=== PATIENT | male | born 1955 | race Caucasian/White ===

== ENCOUNTER 2017-12-26 07:04 | Observation (INO) | payer OTHER ==
[~2017-12-26] VITALS: Ht 188 cm; Wt 90.7 kg
[~2017-12-26 07:04] MED LIST: ASC500 PO; CALC600T59 PO; MULT1CAP41 PO
[2017-12-26] MEDS ORDERED: IBUP100T51 PO (07:16)
--- NOTE | 2017-12-26 07:38 | ER Report ---
History and Physical Time Seen By MD: 07:38 Hx. of Stated Complaint: BILAT ABDOMINAL PAIN AND DISTENTION THAT STARTED TWO WEEKS AGO THAT SIGNIFICANTLY WORSENED LAST NIGHT. NO N/V/D. HPI/ROS 63-year-old male presents to the emergency department with worsening bilateral lower quadrant abdominal pain. Also with nausea without vomiting. He had a normal bowel movement today, and is passing gas. No fever or chills. No chest pain or shortness of breath. No recent trauma. No hematemesis or hematochezia. Otherwise no complaints. Remainder of the 14 system rev: Yes Allergies: Coded Allergies: codeine (Verified Allergy, Mild, ITCHING/NAUSEA, 12/06/08) latex (Verified Allergy, Unknown, 12/26/17) Home Meds Active Scripts Nicotine (NICOTROL) 10 Mg/Inh Ctr, 10 MG INH PRN PRN for smoking, #30 INH Prov:ROSY VALLECILLO [facility] 12/27/17 Hydrocodone Bit/Acetaminophen (HYDROCODON-ACETAMINOPHEN 5-325) 1 Each Tablet, 1 EACH PO Q4H PRN for PAIN, #42 TAB Prov:ROSY VALLECILLO [facility] 12/27/17 Reported Medications Ascorbic Acid (VITAMIN C) 500 Mg Tablet, 500 MG PO QDAY, TAB 12/26/17 Cholecalciferol (Vitamin D3) (VITAMIN D3) 1,000 Unit Tablet, 1000 UNIT PO QDAY, TAB 12/26/17 Multivit With Calcium,Iron,Min (ESSENTIAL DAILY) 1 Each Tablet, 1 EACH PO QDAY 12/26/17 Ibuprofen (ADVIL) 100 Mg Tablet, 3 TAB PO BID Please decrease intake of ibuprofen. Can cause GI bleeding and kidney issues. 12/26/17 Reviewed Nurses Notes: Yes Old Medical Records Reviewed: Yes Constitutional Physical Exam General Appearance: The patient is alert, has no immediate need for airway protection and no current signs of toxicity. Eyes: Pupils equal and round no injection. Respiratory: Chest is non tender, lungs are clear to auscultation. Cardiac: regular rate and rhythm Gastrointestinal: Abdomen is soft with diffuse, non-focal TTP Musculoskeletal: Neck: Neck is supple and non tender. Extremities have full range of motion and are non tender. Skin: No rashes or lesions. DIFFERENTIAL DIAGNOSIS: After history and physical exam differential diagnosis was considered for abdominal pain including but not limited to appendicitis, cholecystitis, gastritis and urinary tract infection. Medical Decision Making Data Points Laboratory Hematology Test 12/26/17 07:30 12/26/17 12:08 D-Dimer Quantitative (PE/DVT) 0.44 ug/ml (0-0.50) Hemoglobin A1c 7.1 % (4.6-6.0) Troponin I < 0.012 ng/ml Lipase 86 U/L (23-300) Lactate 0.8 mmol/L (0.7-2.1) Chemistry Test 12/26/17 07:30 12/26/17 12:08 D-Dimer Quantitative (PE/DVT) 0.44 ug/ml (0-0.50) Hemoglobin A1c 7.1 % (4.6-6.0) Troponin I < 0.012 ng/ml Lipase 86 U/L (23-300) Lactate 0.8 mmol/L (0.7-2.1) Coagulation Test 12/26/17 07:30 D-Dimer Quantitative (PE/DVT) 0.44 ug/ml ED Course/Re-evaluation ED Course Patient otherwise stable, but CT scan concerning for an early bowel obstruction. He is having normal bowel movements and passing gas, so I think this can be treated conservatively with IV hydration, bowel rest, and gentle advancement of diet. I spoke with the surgeon vice president industrial relations who agrees that this is not an acute yuen rgical problem. He will be admitted to the hospitalist service for conservative management of a possible early small bowel obstruction versus ileus. Decision to Disposition Date: Dec 26, 2017 Decision to Disposition Time: 15:00 Depart Departure Latest Vital Signs Impression: Primary Impression: Partial small bowel obstruction Additional Impression: LACY (acute kidney injury) Condition: Improved Disposition: Admitted from ER New Scripts Nicotine (NICOTROL) 10 Mg/Inh Ctr 10 MG INH PRN PRN for smoking, #30 INH Prov: ROSY VALLECILLO [employer] 12/27/17 Hydrocodone Bit/Acetaminophen (HYDROCODON-ACETAMINOPHEN 5-325) 1 Each Tablet 1 EACH PO Q4H PRN for PAIN, #42 TAB Prov: ROSY VALLECILLO [employer] 12/27/17 Problem Qualifiers DAI NICHOLAS MD Dec 26, 2017 07:38
[2017-12-26] MEDS ORDERED: NS(*) 0.9% 1000 ML BAG 1,000 ML IV ONE (07:45)
[2017-12-26 07:56] LABS: PLATELET COUNT, AUTOMATED 131 K/uL (150-450)
[2017-12-26] MEDS ORDERED: MORPHINE 4 MG/ML SDV IVP ONE ×3 (08:10→12:05)
--- NOTE | 2017-12-26 08:19 | EKG ---
FACILITY: [facility] PATIENT NAME: LAURA KEMP : [id number] MR: [id number] V: [id number] EXAM DATE: ORDERING PHYSICIAN: DAI NICHOLAS TECHNOLOGIST: MARIELLE Sheets Reason : GI PAIN Blood Pressure : / mmHG Vent. Rate : 070 BPM Atrial Rate : 070 BPM P-R Int : 134 ms QRS Dur : 098 ms QT Int : 404 ms P-R-T Axes : 099 061 056 degrees QTc Int : 436 ms Sinus rhythm with premature atrial complex Nonspecific ST findings diffusely Artifact in several leads - repeat if needed No previous ECGs available Confirmed by URBAN VALENTIN ([id number]) on 12/26/2017 10:16:06 AM Referred By: YU Confirmed By:URBAN VALENTIN
--- NOTE | 2017-12-26 08:39 | RADIOLOGY IMAGING REPORT ---
FACILITY: [facility] - [place] PATIENT NAME: Brenton Wang : 1955 MR: [id number] V: [id number] EXAM DATE: ORDERING PHYSICIAN: DAI NICHOLAS TECHNOLOGIST: Location: [facility] [place] Patient: Brenton Wang : 1955 Visit/Account:[id number] Date of Sevice: 12/26/2017 CHEST SINGLE AP Additional pertinent History: Left lower chest pain COMPARISON STUDIES: none FINDINGS: Support lines and catheters: None Lungs and Pleura: Lung smiley well expanded with no infiltrates or consolidations. No parenchymal ma ss lesions are seen. There are no effusions Heart and vasculature: Negative. Yennifer and Mediastinum: Negative. Bones and Chest wall: Negative. Upper Abdomen: Negative. IMPRESSION: 1. Negative chest Report Dictated By: Hai Bear MD at 12/26/2017 8:34 AM Report E-Signed By: Hai Bear MD at 12/26/2017 8:35 AM WSN:[id number]
[2017-12-26] MEDS ORDERED: IOPAMIDOL 76% 100 ML INFUS BTL 100 ML ONE (09:15)
--- NOTE | 2017-12-26 10:35 | RADIOLOGY IMAGING REPORT ---
FACILITY: [facility] - [place] PATIENT NAME: Brenton Wang : 1955 MR: [id number] V: [id number] EXAM DATE: ORDERING PHYSICIAN: DAI NICHOLAS TECHNOLOGIST: Location: [facility] [place] Patient: Brenton Wang : 1955 Visit/Account:[id number] Date of Sevice: 12/26/2017 ABDOMEN/PELVIS WITH CONTRAST HISTORY: severe atraumatic LUQ pain TECHNIQUE: Following administration of IV contrast contiguous axial images acquired through the abdom en/pelvis. Coronal and sagittal reformatting also performed. Dose Lowering Technique One of the following dose optimization techniques was utilized in the performance of this exam: Autom ated exposure control; adjustment of the mA and/or kV according to the patient's size; or use of an i terative reconstruction technique. Specific details can be referenced in the facility's radiology C T exam operational policy. CONTRAST: 75 mL Isovue-370 COMPARISON: None. FINDINGS: Visualized lung bases: There Is coarse linear stranding in the right lung base and pleural-based calc ifications along the diaphragmatic surface on the right. Also noted are reticular nodular changes in the posterior aspect right lower lobe Hepatobiliary: Cholelithiasis although no evidence of bony ductal dilatation. There is a severe nod ular configuration to the liver with hypertrophy of the caudate and left lobes very suspicious for ci rrhosis. Spleen: Borderline enlarged at 13.9 cm in length Adrenals: Negative. Pancreas: Negative. Kidneys ureters or bladder: Nonobstructing renal calculi are seen in both renal collecting systems. There is is a marked lobular contour to both kidneys . Subcentimeter hypodensities in the kidneys a re too small to characterize although may represent cysts Genitalia: Prostate gland appears heterogeneous and contains coarse calcifications.. There are calc ifications of the vas deferens bilaterally GI: There Is diverticulosis of the left-sided colon no CT evidence of acute diverticulitis. There is moderate gaseous distention of several jejunal loops in the left upper quadrant abdomen. Th ere Is a transitional point left mid abdomen best seen on coronal image #34. This could represent a partial small bowel obstruction possibly a localized ileus. There is mild thickening of the lower esophagus Vessels/spaces/nodes: There are mild vascular calcifications present there are portosystemic collate rals in the upper and mid abdomen There are multiple retroperitoneal lymph nodes, many appear small. A policy services representative aortocaval lymph node measures 1.1 x 1.4 cm Bones/soft tissues: There is an umbilical hernia containing fat. There are mild spondylotic changes of the visualized lower thoracic spine and extensive spondylotic changes of the scoliotic lumbar spi ne Additional findings: None pertinent. IMPRESSION: There is coarse linear stranding in the right lung base and pleural-based calcifications along the di aphragmatic cysts on the right which may represent chronic pleural parenchymal scarring although clin ical correlation needed. Also noted are reticular nodular changes in the posterior aspect right lowe r lobe consistent with chronic changes although less likely an acute infiltrate not excluded Cholelithiasis although no evidence for ductal dilatation There is a severe nodular configuration to the liver with hypertrophy of the caudate and left lobes h ighly suspicious for cirrhosis. Also noted are numerous portosystemic collaterals consistent with po rtal hypertension. Borderline splenomegaly Nonobstructing renal calculi bilaterally with a lobular contour to both kidneys. Calcified vas deferens bilaterally Diverticulosis left-sided colon although no CT evidence of acute diverticulitis There is moderate gaseous distention of several jejunal loops in left upper quadrant of abdomen. The re is a transitional point in the left mid abdomen as described above which could represent a partial small bowel obstruction or ossibly a localized ileus. Mild thickening the lower esophagus. Multiple retroperitoneal lymph nodes many of which appear small. A policy services representative aortocaval node me asures 1.1 x 1.4 cmReport Dictated By: Fauzia Butler MD at 12/26/2017 10:11 AM Report E-Signed By: Fauzia Butler MD at 12/26/2017 10:30 AM WSN:[email or web address]
[2017-12-26 13:20] VITALS: BP 158/87
[2017-12-26] MEDS ORDERED: MORPHINE 2 MG/ML SYR IVP ONE (13:30)
[2017-12-26] MEDS ORDERED: ASCO-182 PO (13:32)
[2017-12-26] MEDS ORDERED: MULT-1077 PO (13:32)
[2017-12-26] MEDS ORDERED: CHOL10005 PO (13:32)
[2017-12-26] MEDS ORDERED: ACETAMINOPHEN 325 MG TAB PO PRN (14:25)
[2017-12-26] MEDS ORDERED: MORPHINE 4 MG/ML SDV IVP PRN (14:25)
[2017-12-26] MEDS ORDERED: INSULIN HUM LISPRO 100 UN/ML 3 ML VIAL SUBQ PRN (14:25)
[2017-12-26] MEDS ORDERED: NICOTINE INH SYSTEM 10 MG/INH INH PRN (14:45)
--- NOTE | 2017-12-26 14:55 | History & Physical ---
History of Present Illness Chief Complaint abdominal pain History of Present Illness He is a 62 year old male that presented to the emergency department with complaints of bilateral abdominal pain. He reports he has had abdominal distention for two weeks, but the pain significantly worsened last night. He denies fever, CP, SOB, N/V/D or constipation. He did have CT done in the emergency department which suggests a partial small bowel obstruction. He was recommended for admission. History Problems: (1) History of ankle fracture Status: Resolved Home Meds Reported Medications Ascorbic Acid (VITAMIN C) 500 Mg Tablet, 500 MG PO QDAY, TAB 12/26/17 Cholecalciferol (Vitamin D3) (VITAMIN D3) 1,000 Unit Tablet, 1000 UNIT PO QDAY, TAB 12/26/17 Multivit With Calcium,Iron,Min (ESSENTIAL DAILY) 1 Each Tablet, 1 EACH PO QDAY 12/26/17 Ibuprofen (ADVIL) 100 Mg Tablet, 4 TAB PO TID' 12/26/17 Discontinued Reported Medications Multivitamins W-Minerals (Multivitamin) 1 Cap Capsule, 1 CAP PO DAILY, 0 Refills 12/06/08 Calcium Carbonate (Caltrate 600) 600 Mg Tablet, 600 MG PO DAILY, 0 Refills 12/06/08 Ascorbic Acid (Vitamin C) 500 Mg Tab, 500 MG PO QDAY, 0 Refills 12/06/08 Allergies: Coded Allergies: codeine (Verified Allergy, Mild, ITCHING/NAUSEA, 12/06/08) latex (Verified Allergy, Unknown, 12/26/17) Hx Smoking: Yes (12 cig a day) Smoking Status: Current: Every Day Smoker Caffeine Intake: Coffee Caffeine/Cups Per Day: 4 Hx Alcohol Use: No When Quit Alcohol?: 12 yr ago Hx Substance Use Disorder: No Review of Systems All Systems Reviewed/Normal: Yes, Except as Noted Gastrointestinal: Abdominal Pain Exam Vital Signs Vital Signs Date Time Temp Pulse Resp B/P (MAP) Pulse Ox O2 Delivery O2 Flow Rate FiO2 12/26/17 13:20 97.8 61 16 158/87 (110) 96 Room Air General Appearance: Alert, Awake, No Acute Distress, Afebrile Neuro: No Gross deficits Cardiovascular: Regular Rate and Rhythm Respiratory: No Respiratory Distress, Clear to Auscultation GI: Other (abdominal pain to left upper quadrant upon palpation) Extremities: No Edema Psych: Alert & Oriented X3, Appropriate Mood & Affect Medical Decision Making Data Points Result Diagram: 12/26/17 0730 12/26/17 0730 EKG / Imaging EKG Interpretation SR with PAC's Monitor Interpretation: NSR with PACs Imaging PATIENT NAME: Brenton Wang : 1955 MR: [id number] V: [id number] EXAM DATE: [id number] ORDERING PHYSICIAN: DAI NICHOLAS TECHNOLOGIST: Location: [facility] [place] Patient: Brenton Wang : 1955 Visit/Account:[id number] Date of Sevice: 12/26/2017 ABDOMEN/PELVIS WITH CONTRAST HISTORY: severe atraumatic LUQ pain TECHNIQUE: Following administration of IV contrast contiguous axial images acquired through the abdomen/pelvis. Coronal and sagittal reformatting also performed. Dose Lowering Technique One of the following dose optimization techniques was utilized in the performance of this exam: Automated exposure control; adjustment of the mA and/ or kV according to the patient's size; or use of an iterative reconstruction technique. Specific details can be referenced in the facility's radiology CT exam operational policy. CONTRAST: 75 mL Isovue-370 COMPARISON: None. FINDINGS: Visualized lung bases: There Is coarse linear stranding in the right lung base and pleural-based calcifications along the diaphragmatic surface on the right. Also noted are reticular nodular changes in the posterior aspect right lower lobe Hepatobiliary: Cholelithiasis although no evidence of bony ductal dilatation. There is a severe nodular configuration to the liver with hypertrophy of the caudate and left lobes very suspicious for cirrhosis. Spleen: Borderline enlarged at 13.9 cm in length Adrenals: Negative. Pancreas: Negative. Kidneys ureters or bladder: Nonobstructing renal calculi are seen in both renal collecting systems. There is is a marked lobular contour to both kidneys . Subcentimeter hypodensities in the kidneys are too small to characterize although may represent cysts Genitalia: Prostate gland appears heterogeneous and contains coarse calcifications.. There are calcifications of the vas deferens bilaterally GI: There Is diverticulosis of the left-sided colon no CT evidence of acute diverticulitis. There is moderate gaseous distention of several jejunal loops in the left upper quadrant abdomen. There Is a transitional point left mid abdomen best seen on coronal image #34. This could represent a partial small bowel obstruction possibly a localized ileus. There is mild thickening of the lower esophagus Vessels/spaces/nodes: There are mild vascular calcifications present there are portosystemic collaterals in the upper and mid abdomen There are multiple retroperitoneal lymph nodes, many appear small. A airport representative aortocaval lymph node measures 1.1 x 1.4 cm Bones/soft tissues: There is an umbilical hernia containing fat. There are mild spondylotic changes of the visualized lower thoracic spine and extensive spondylotic changes of the scoliotic lumbar spine Additional findings: None pertinent. IMPRESSION: There is coarse linear stranding in the right lung base and pleural-based calcifications along the diaphragmatic cysts on the right which may represent chronic pleural parenchymal scarring although clinical correlation needed. Also noted are reticular nodular changes in the posterior aspect right lower lobe consistent with chronic changes although less likely an acute infiltrate not excluded Cholelithiasis although no evidence for ductal dilatation There is a severe nodular configuration to the liver with hypertrophy of the caudate and left lobes highly suspicious for cirrhosis. Also noted are numerous portosystemic collaterals consistent with portal hypertension. Borderline splenomegaly Nonobstructing renal calculi bilaterally with a lobular contour to both kidneys. Calcified vas deferens bilaterally Diverticulosis left-sided colon although no CT evidence of acute diverticulitis There is moderate gaseous distention of several jejunal loops in left upper quadrant of abdomen. There is a transitional point in the left mid abdomen as described above which could represent a partial small bowel obstruction or ossibly a localized ileus. Mild thickening the lower esophagus. Multiple retroperitoneal lymph nodes many of which appear small. A airport representative aortocaval node measures 1.1 x 1.4 cmReport Dictated By: Fauzia Butler MD at 12/26/2017 10:11 AM Report E-Signed By: Fauzia Butler MD at 12/26/2017 10:30 AM Assessment and Plan Problems: (1) Partial small bowel obstruction Status: Acute Assessment & Plan: He was admitted with partial small bowel obstruction and abdominal pain. He will receive IV hydration, pain medications. We will do acute abdomen x-ray in the morning. He will be placed on clear liquid diet at this time. (2) Hyperglycemia Status: Acute Assessment & Plan: He was admitted with a glucose of 239. He will be placed on AC/HS glucose monitoring and SSI level 1. We will check an A1C also. (3) Acute kidney injury Status: Acute Assessment & Plan: He was admitted with a creatinine of 1.3. It could be secondary to ibuprofen use. He does report he takes 800mg three times daily. He will receive IV hydration. We will recheck BMP in the morning. Venous Thromboembolism Antithrombotics Is Pt On Any Antithrombotics?: No Exam Sepsis Risk: No Definite Risk ROSY VALLECILLO [facility] Dec 26, 2017 14:54
[2017-12-26] MEDS: NS(*) 0.9% 1000 ML BAG 1,000 ML IV PRN (15:00)
[2017-12-26] MEDS ORDERED: MORPHINE 1 MG/ML 30 ML PCA IV PRN (15:15)
[2017-12-26] MEDS ORDERED: NALOXONE HCL 0.4 MG/ML VIAL IVP PRN (15:15)
[2017-12-26 15:56] VITALS: BP 164/91
[2017-12-26 18:47] VITALS: BP 143/79
[2017-12-26 22:22] VITALS: BP 157/86
[2017-12-27 03:10] VITALS: BP 154/85
[2017-12-27] MEDS: NS(*) 0.9% 1000 ML BAG 1,000 ML IV PRN (04:54)
[2017-12-27 05:48] LABS: PLATELET COUNT, AUTOMATED 113 K/uL (150-450)
--- NOTE | 2017-12-27 07:13 | RADIOLOGY IMAGING REPORT ---
FACILITY: [facility] - [place] PATIENT NAME: Brenton Wang : 1955 MR: [id number] V: [id number] EXAM DATE: ORDERING PHYSICIAN: ROSY VALLECILLO TECHNOLOGIST: Location: [facility] Patient: Brenton Wang : 1955 Visit/Account:[id number] Date of Sevice: 12/27/2017 OBSTRUCTION SERIES: Indication: Partial small bowel obstruction. Technique: Supine and erect views of the abdomen and a frontal view of the chest were obtained. Comparison: None. Findings: The intestinal gas pattern is unremarkable. There is no evidence of obstruction, dilatation , or free air. No suspicious calcifications are identified. There is moderate degenerative disc disea se and osteoarthritis in the lumbar spine. No acute skeletal deformity is identified. The chest film demonstrates minimal linear atelectasis at the right base. The lungs are otherwise jennifer ar. There is no evidence of effusion. The heart and mediastinal contours are within normal limits. IMPRESSION: No evidence of obstruction or free air. Report Dictated By: Casper Salazar MD at 12/27/2017 7:05 AM Report E-Signed By: Casper Salazar MD at 12/27/2017 7:09 AM WSN:[id number]
[2017-12-27] MEDS ORDERED: APAP/HYDROCODONE 325/5 TAB PO PRN (07:50)
[2017-12-27 08:07] VITALS: BP 168/89
[2017-12-27] MEDS ORDERED: LOR5/325 PO (09:20)
[2017-12-27] MEDS ORDERED: NIC10R INH (09:20)
--- NOTE | 2017-12-27 09:28 | Hospitalist Depart ---
Discharge Summary Reason for Hosp/Final Diag: (1) Partial small bowel obstruction Status: Acute Hospital Course & Plan: He was admitted with partial small bowel obstruction and abdominal pain. He received IV hydration and pain medications. His abdomen x -ray shows no acute processes this morning. His diet was advanced. He will be given oral pain medications to go home. He should follow up with PCP and will get referral to follow up with GI doctor as well. (2) Hyperglycemia Status: Acute Hospital Course & Plan: He was admitted with a glucose of 239. He was placed on AC/HS glucose monitoring and SSI level 1. A1C is 7.1. He will establish care for PCP and get further recommendations. (3) Acute kidney injury Status: Acute Hospital Course & Plan: He was admitted with a creatinine of 1.3, and has decreased to 1.1 with hydration. It could be secondary to ibuprofen use. He does report he takes 800mg three times daily. He was encouraged to decrease ibuprofen use. Departure Latest Vital Signs Vital Signs 12/26/17 12/27/17 12/27/17 12/27/17 22:22 08:07 08:09 08:11 Temp 98.6 Pulse 63 Resp 16 B/P (MAP) 168/89 (115) Pulse Ox 96 O2 Delivery Room Air O2 Flow Rate 0.5 Weight (Pounds): 200 Weight (Ounces): 9.0 Result Diagram: 12/27/17 0534 12/27/17 0534 Condition: Improved Discharge: Home, Self Care Discharge Instructions Home Meds Active Scripts Nicotine (NICOTROL) 10 Mg/Inh Ctr, 10 MG INH PRN Y for smoking, #30 INH Prov:ROSY VALLECILLO [employer]CH[employer] 12/27/17 Hydrocodone Bit/Acetaminophen (HYDROCODON-ACETAMINOPHEN 5-325) 1 Each Tablet, 1 EACH PO Q4H Y for PAIN, #42 TAB Prov:ROSY VALLECILLO [employer] 12/27/17 Reported Medications Ascorbic Acid (VITAMIN C) 500 Mg Tablet, 500 MG PO QDAY, TAB 12/26/17 Cholecalciferol (Vitamin D3) (VITAMIN D3) 1,000 Unit Tablet, 1000 UNIT PO QDAY, TAB 12/26/17 Multivit With Calcium,Iron,Min (ESSENTIAL DAILY) 1 Each Tablet, 1 EACH PO QDAY 12/26/17 Ibuprofen (ADVIL) 100 Mg Tablet, 3 TAB PO BID Please decrease intake of ibuprofen. Can cause GI bleeding and kidney issues. 12/26/17 Discontinued Reported Medications Multivitamins W-Minerals (Multivitamin) 1 Cap Capsule, 1 CAP PO DAILY, 0 Refills 12/06/08 Calcium Carbonate (Caltrate 600) 600 Mg Tablet, 600 MG PO DAILY, 0 Refills 12/06/08 Ascorbic Acid (Vitamin C) 500 Mg Tab, 500 MG PO QDAY, 0 Refills 12/06/08 Diet: Diabetic Activity: As Tolerated Special Instructions: Please see primary care provider regarding abdomen. Need referral for GI doctor. Please decrease ibuprofen intake. Your kidney function can be decreased with too much ibuprofen intake. Venous Thromboembolism Antithrombotics Is Pt On Any Antithrombotics?: No ROSY VALLECILLO Dec 27, 2017 09:28
== END 2017-12-27 10:00 | disposition home or self-care (01) ==
LOC: ER 07:07 → MED 12:49 → INTOOBSV 12:49
PROVIDERS: ADMIT Internal Medicine; ATTEND Internal Medicine
DX: K56.600 Partial intestinal obstruction, unspecified as to cause (principal); N17.9 Acute kidney failure, unspecified; R73.9 Hyperglycemia, unspecified
CPT/HCPCS: 36415; 36416; 71045; 74022; 74177; 82948; 83036; 83605; 83690; 84484; 85025; 85379; 93005; 96361; 96374; 96376; 99284; G0378; J2270; J7030; Q9967; 82040; 82247; 82310; 82374; 82435; 82565; 82947; 84075; 84132; 84155; 84295; 84450; 84460; 84520; 96375

== ENCOUNTER 2018-10-13 21:35 | Emergency (ER) | payer OTHER ==
[~2018-10-13 21:35] MED LIST changes: +ASCO-182 PO; +CHOL10005 PO; +IBUP100T51 PO; +LOR5/325 PO; +MULT-1077 PO; +NIC10R INH
--- NOTE | 2018-10-13 21:45 | ER Report ---
History and Physical Time Seen By MD: 21:45 HPI/ROS CHIEF COMPLAINT: Cough, shortness of breath HISTORY OF PRESENT ILLNESS: 63-year-old male smoker one pack per day for 45 years. Patient denies history of COPD, does not use inhalers. Patient notes shortness of breath since yesterday with productive cough of yellowish sputum. He notes increased work of breathing. He notes right-sided sharp pleuritic rib pain with increased with coughing. Patient notes no leg swelling or chest pain. Patient denies cardiac history. Patient denies fever or chills. REVIEW OF SYSTEMS: Respiratory: As above Cardiovascular: As above Gastrointestinal: No vomiting, no abdominal pain. Musculoskeletal: No back pain. Allergies: Coded Allergies: codeine (Verified Allergy, Mild, ITCHING/NAUSEA, 10/13/18) latex (Verified Allergy, Unknown, 10/13/18) Home Meds Active Scripts Prednisone (PREDNISONE) 20 Mg Tablet, 20 MG PO QDAY for reduce lung inflammation, #9 2 by mouth daily for 3 days then 1 by mouth daily for 3 days Prov:ADRIANA BALBUENA DO 10/13/18 Cefuroxime Axetil (CEFUROXIME) 500 Mg Tablet, 500 MG PO BID for infection, #14 TAB Prov:SREEADRIANA [place] DO 10/13/18 Discontinued Reported Medications Ascorbic Acid (VITAMIN C) 500 Mg Tablet, 500 MG PO QDAY, TAB 12/26/17 Cholecalciferol (Vitamin D3) (VITAMIN D3) 1,000 Unit Tablet, 1000 UNIT PO QDAY, TAB 12/26/17 Multivit With Calcium,Iron,Min (ESSENTIAL DAILY) 1 Each Tablet, 1 EACH PO QDAY 12/26/17 Ibuprofen (ADVIL) 100 Mg Tablet, 3 TAB PO BID Please decrease intake of ibuprofen. Can cause GI bleeding and kidney issues. 12/26/17 Discontinued Scripts Nicotine (NICOTROL) 10 Mg/Inh Ctr, 10 MG INH PRN PRN for smoking, #30 INH Prov:ROSY VALLECILLOP 12/27/17 Hydrocodone Bit/Acetaminophen (HYDROCODON-ACETAMINOPHEN 5-325) 1 Each Tablet, 1 EACH PO Q4H PRN for PAIN, #42 TAB Prov:ROSY VALLECILLOP 12/27/17 Reviewed Nurses Notes: Yes Old Medical Records Reviewed: Yes Hx Smoking: Yes (12 cig a day) Smoking Status: Current: Every Day Smoker Hx Substance Use Disorder: No Hx Alcohol Use: No Constitutional Vital Sign - Last 24 Hours 10/13/18 10/13/18 10/13/18 10/13/18 21:39 21:40 21:50 21:54 Temp 98.6 Pulse 74 77 78 Resp 26 19 18 B/P (MAP) 162/93 (116) 162/93 Pulse Ox 97 92 O2 Delivery Room Air 10/13/18 10/13/18 10/13/18 10/13/18 21:54 22:00 22:00 22:05 Pulse 80 86 Resp 20 11 B/P (MAP) 156/94 (114) Pulse Ox 94 95 O2 Delivery Room Air 10/13/18 10/13/18 10/13/18 10/13/18 22:20 22:30 22:50 23:00 Pulse 77 72 Resp 7 31 B/P (MAP) 151/87 (108) 140/80 (100) Pulse Ox 92 90 10/13/18 10/13/18 23:05 23:20 Pulse 79 75 Resp 18 15 Pulse Ox 91 91 Physical Exam General Appearance: The patient is alert, has no immediate need for airway protection and no current signs of toxicity. Vital signs stable, afebrile, mild tachypnea, pulse ox normal HEENT: Pupils equal and round no injection. TMs normal, oropharynx with mild erythema, no exudate Respiratory: Chest is non tender, lungs are clear to auscultation. Faint expiratory wheezing, no Rales Cardiac: regular rate and rhythm, no murmur Gastrointestinal: Abdomen is soft and non tender, no masses, bowel sounds normal. Musculoskeletal: Neck: Neck is supple and non tender. Extremities have full range of motion and are non tender. No edema, no calf tenderness, stasis changes in the left lower extremity Skin: No rashes or lesions. DIFFERENTIAL DIAGNOSIS: After history and physical exam differential diagnosis was considered for shortness of breath including but not limited to pulmonary infectious process, COPD, asthma, pulmonary embolus and congestive heart failure. Medical Decision Making Data Points Result Diagram: 10/13/18215210/13/182152 Laboratory Hematology Test 10/13/18 21:53 Red Blood Count 4.84 M/uL (4.00-5.60) Mean Corpuscular Volume 88.6 fL (80.0-96.0) Mean Corpuscular Hemoglobin 31.0 pg (26.0-33.0) Mean Corpuscular Hemoglobin Concent 35.0 g/dL (32.0-36.0) Red Cell Distribution Width 13.9 % (11.5-14.5) Mean Platelet Volume 7.7 fL (7.2-11.1) Neutrophils (%) (Auto) 58.0 % (39.4-72.5) Lymphocytes (%) (Auto) 30.4 % (17.6-49.6) Monocytes (%) (Auto) 10.1 % (4.1-12.4) Eosinophils (%) (Auto) 0.8 % (0.4-6.7) Basophils (%) (Auto) 0.7 % (0.3-1.4) Nucleated RBC Relative Count (auto) 0.0 /100WBC Neutrophils # (Auto) 2.6 K/uL (2.0-7.4) Lymphocytes # (Auto) 1.4 K/uL (1.3-3.6) Monocytes # (Auto) 0.5 K/uL (0.3-1.0) Eosinophils # (Auto) 0.0 K/uL (0.0-0.5) Basophils # (Auto) 0.0 K/uL (0.0-0.1) Nucleated RBC Absolute Count (auto) 0.00 K/uL D-Dimer Quantitative (PE/DVT) 0.41 ug/ml (0-0.50) Sodium Level 138 mmol/L (137-145) Potassium Level 3.7 mmol/L (3.5-5.0) Chloride Level 104 mmol/L (98-107) Carbon Dioxide Level 26 mmol/L (22-30) Blood Urea Nitrogen 18 mg/dl (9-21) Creatinine 1.40 mg/dl (0.66-1.25) Glomerular Filtration Rate Calc 51.5 Random Glucose 108 mg/dl (75-110) Lactate 0.8 mmol/L (0.7-2.1) Calcium Level 8.9 mg/dl (8.4-10.2) Total Bilirubin 0.6 mg/dl (0.2-1.3) Aspartate Amino Transf (AST/SGOT) 35 U/L (0-35) Alanine Aminotransferase (ALT/SGPT) 32 U/L (0-56) Alkaline Phosphatase 110 U/L (0-126) Troponin I < 0.012 ng/ml B-Type Natriuretic Peptide 55 pg/ml (0-100) Total Protein 6.9 g/dl (6.3-8.2) Albumin 3.6 g/dl (3.5-5.0) Chemistry Test 10/13/18 21:53 White Blood Count 4.5 k/uL (4.5-11.0) Red Blood Count 4.84 M/uL (4.00-5.60) Hemoglobin 15.0 g/dL (14.0-18.0) Hematocrit 42.9 % (42.0-52.0) Mean Corpuscular Volume 88.6 fL (80.0-96.0) Mean Corpuscular Hemoglobin 31.0 pg (26.0-33.0) Mean Corpuscular Hemoglobin Concent 35.0 g/dL (32.0-36.0) Red Cell Distribution Width 13.9 % (11.5-14.5) Platelet Count 99 K/uL (150-450) Mean Platelet Volume 7.7 fL (7.2-11.1) Neutrophils (%) (Auto) 58.0 % (39.4-72.5) Lymphocytes (%) (Auto) 30.4 % (17.6-49.6) Monocytes (%) (Auto) 10.1 % (4.1-12.4) Eosinophils (%) (Auto) 0.8 % (0.4-6.7) Basophils (%) (Auto) 0.7 % (0.3-1.4) Nucleated RBC Relative Count (auto) 0.0 /100WBC Neutrophils # (Auto) 2.6 K/uL (2.0-7.4) Lymphocytes # (Auto) 1.4 K/uL (1.3-3.6) Monocytes # (Auto) 0.5 K/uL (0.3-1.0) Eosinophils # (Auto) 0.0 K/uL (0.0-0.5) Basophils # (Auto) 0.0 K/uL (0.0-0.1) Nucleated RBC Absolute Count (auto) 0.00 K/uL D-Dimer Quantitative (PE/DVT) 0.41 ug/ml (0-0.50) Glomerular Filtration Rate Calc 51.5 Lactate 0.8 mmol/L (0.7-2.1) Calcium Level 8.9 mg/dl (8.4-10.2) Total Bilirubin 0.6 mg/dl (0.2-1.3) Aspartate Amino Transf (AST/SGOT) 35 U/L (0-35) Alanine Aminotransferase (ALT/SGPT) 32 U/L (0-56) Alkaline Phosphatase 110 U/L (0-126) Troponin I < 0.012 ng/ml B-Type Natriuretic Peptide 55 pg/ml (0-100) Total Protein 6.9 g/dl (6.3-8.2) Albumin 3.6 g/dl (3.5-5.0) Coagulation Test 10/13/18 21:53 D-Dimer Quantitative (PE/DVT) 0.41 ug/ml Microbiology Microbiology Date/Time Source Procedure Growth Status 10/13/18 23:22 Blood Peripheral Draw Blood Culture - Preliminary NO GROWTH AFTER 3 DAYS, REINCUBATED Resulted 10/13/18 21:53 Blood Peripheral Draw Blood Culture - Preliminary NO GROWTH AFTER 3 DAYS, REINCUBATED Resulted EKG/Imaging EKG Interpretation 12 lead EK Rhythm: normal sinus rhythm with sinus arrhythmia [place]: normal QRS: normal ST segments: normal, no evidence of ischemia or dysrhythmia, peaked T waves in V2 through V4, comparison to previous EKG dated 12/26/17, no significant change Imaging X-ray: Two-view chest x-ray was obtained. I viewed the images myself on the PACS system. My interpretation of the images is: No infiltrate, no effusion, normal mediastinum. The radiologist interpretation had no clinically significant variation from this interpretation. ED Course/Re-evaluation Clinical Indication for ER IV: Hydration, IV Access ED Course Patient was admitted to an examination room. H&P was done. The differential diagnoses was considered. On clinical examination. Patient with shortness of breath and increased work of breathing. He does have a history of COPD. Patient is productive cough of colored sputum and low-grade fevers for 2 days. His chest x-ray is clear. His diagnostic studies are unremarkable. He is treated with Solu-Medrol IV, DuoNeb's. His EKG and troponin were unremarkable. He is discharged home on Ceftin, prednisone and albuterol inhaler. Patient advised to follow-up with primary care if unimproved in 3-5 days. Decision to Disposition Date: October 13, 2018 Decision to Disposition Time: 23:20 Depart Departure Latest Vital Signs Vital Signs Date Time Temp Pulse Resp B/P (MAP) Pulse Ox O2 Delivery O2 Flow Rate FiO2 10/13/18 23:20 75 15 91 10/13/18 23:00 140/80 (100) 10/13/18 21:54 Room Air 10/13/18 21:40 98.6 Impression: Primary Impression: COPD exacerbation Additional Impressions: Acute bronchitis Thrombocytopenia Condition: Improved Disposition: HOME OR SELF-CARE Referrals: EMMA ZAYAS DO [place] Prednisone (PREDNISONE) 20 Mg Tablet 20 MG PO QDAY for reduce lung inflammation, #9 2 by mouth daily for 3 days then 1 by mouth daily for 3 days Prov: ADRIANA BALBUENA DO 10/13/18 Cefuroxime Axetil (CEFUROXIME) 500 Mg Tablet 500 MG PO BID for infection, #14 TAB Prov: ADRIANA BALBUENA DO 10/13/18 Patient Instructions: Acute Bronchitis (ED), COPD (Chronic Obstructive Pulmonary Disease) (ED) Additional Instructions: Follow-up with Dr. Zayas if unimproved in 3-5 days Problem Qualifiers Additional Impressions: Acute bronchitis Bronchitis organism: unspecified organism Qualified Codes: J20.9 - Acute bronchitis, unspecified ADRIANA BALBUENA DO October 13, 2018 21:45
[2018-10-13] MEDS ORDERED: ALBUTEROL/IPRATROPIUM 3 ML NEB NEB ONE (21:50)
[2018-10-13] MEDS ORDERED: methylPREDNIS SUCC 125 MG/2ML IVP ONE (21:50)
[2018-10-13 22:09] LABS: PLATELET COUNT, AUTOMATED 99 K/uL (150-450)
--- NOTE | 2018-10-13 22:14 | EKG ---
[place] [facility] [place] LAURA KEMP : [id number] MR: [id number] V: [id number] EXAM DATE: ORDERING PHYSICIAN: ADRIANA BALBUENA TECHNOLOGIST: ELIUD Test Reason : DYSPNEA Blood Pressure : / mmHG Vent. Rate : 092 BPM Atrial Rate : 092 BPM P-R Int : 140 ms QRS Dur : 100 ms QT Int : 388 ms P-R-T Axes : 062 076 071 degrees QTc Int : 479 ms Normal sinus rhythm with sinus arrhythmia Normal ECG When compared with ECG of 26-DEC-2017 08:15, No significant change was found Confirmed by Germain Gray ([id number]) on 10/14/2018 6:52:07 AM Referred By: Confirmed By:Germain Leblanc
--- NOTE | 2018-10-13 22:55 | RADIOLOGY IMAGING REPORT ---
FACILITY: [facility] PATIENT NAME: Brenton Wang : 1955 MR: [id number] V: [id number] EXAM DATE: ORDERING PHYSICIAN: ADRIANA BALBUENA TECHNOLOGIST: [facility] Patient: Brenton Wang : 1955 Visit/Account:[id number] Date of Sevice: 10/13/2018 EXAMINATION: Chest 2 Views HISTORY: Respiratory distress. COMPARISON: 12/26/2017. FINDINGS: The lungs are clear. No focal consolidation or pleural fluid. No pneumothorax. Normal cardiomediastinal silhouette, with normal heart size and pulmonary vascularity. Visualized osseous structures are unremarkable. IMPRESSION: No evidence of acute cardiopulmonary disease. Report Dictated By: Jessee Mcmullen MD at 10/13/2018 10:49 PM Report E-Signed By: Jessee Mcmullen MD at 10/13/2018 10:50 PM WSN:[id number]
[2018-10-13 23:00] VITALS: BP 140/80
[2018-10-13] MEDS ORDERED: CEFUROXIME AXETIL 250 MG TAB PO ONE (23:20)
[2018-10-13] MEDS ORDERED: ALBUTEROL 8 GM INHALER INH ONE (23:20)
[2018-10-13] MEDS ORDERED: CEFU500T10 PO (23:23)
[2018-10-13] MEDS ORDERED: PRED20TA6 PO (23:23)
== END 2018-10-13 23:45 | disposition home or self-care (01) ==
LOC: ER 21:45
DX: J44.1 Chronic obstructive pulmonary disease with (acute) exacerbation (principal); J20.9 Acute bronchitis, unspecified; D69.6 Thrombocytopenia, unspecified; F17.210 Nicotine dependence, cigarettes, uncomplicated; Z79.899 Other long term (current) drug therapy
CPT/HCPCS: 36415; 71046; 83605; 83880; 84484; 85025; 85379; 87040; 93005; 94640; 96374; 99284; J2930; J7620; 82040; 82247; 82310; 82374; 82435; 82565; 82947; 84075; 84132; 84155; 84295; 84450; 84460; 84520